=== PATIENT | male | born 1970 | race Caucasian/White ===

== ENCOUNTER 2017-10-17 19:50 | Observation (INO) | payer OTHER ==
[~2017-10-17] VITALS: Ht 180.3 cm; Wt 116.5 kg
[2017-10-17 21:00] LABS: HEMATOCRIT 45.5 % (38.0-50.0); MCH 32.1 PG (29.0-34.0); MCHC 36.5 G/DL (30.0-36.0); MEAN PLAT.VOLUME 10.5 uM^3 (9.0-12.4); PLATELET COUNT 199 K/uL (156-360); RBC DIS.WIDTH-CV 12.1 % (11.8-14.6); RED BLOOD COUNT 5.17 M/uL (4.00-5.50); WHITE BLOOD COUNT 8.5 K/uL (4.1-10.2)
[2017-10-17 21:11] LABS: CHLORIDE 105 mEq/L (99-109); POTASSIUM 3.2 mEq/L (3.7-5.4); SODIUM 138 mEq/L (136-147)
[2017-10-17 21:12] LABS: GLUCOSE 100 mg/dL (70-99)
[2017-10-17 21:14] LABS: ANION GAP 10 MEQ/L (2-14)
[2017-10-17 21:17] LABS: GFR ESTIMATE (CALCULATED) > 59 mL/min/ (58.99-99999); UREA NITROGEN (BUN) 16 mg/dL (9-23)
[2017-10-17] MEDS ORDERED: HYDROCHLOROTHIA25 MG PO (22:02)
[2017-10-17] MEDS ORDERED: ATORVASTATIN CA80 MG PO (22:02)
[2017-10-17] MEDS ORDERED: ASPIR-TRIN325 M1 PO (22:03)
[2017-10-18 00:22] VITALS: BP 141/80
[2017-10-18 03:16] VITALS: BP 114/6
[2017-10-18 06:34] LABS: ANION GAP 8 MEQ/L (2-14); CHLORIDE 106 MEQ/L (99-109); GFR ESTIMATE (CALCULATED) > 59 mL/min/ (58.99-99999); GLUCOSE 92 mg/dL (70-99); HDL CHOLESTEROL 22 MG/DL (Desirable>=40); LDL CHOLESTEROL 59 mg/dL (Desirable<100); NON-HDL CHOLESTEROL 89 mg/dL (Desirable<160); POTASSIUM 3.5 MEQ/L (3.7-5.4); SAMPLE HEMOLYSIS CHECK 0; SAMPLE ICTERIC CHECK 0; SAMPLE LIPEMIA CHECK 0; SODIUM 140 MEQ/L (136-147); TOTAL CHOLESTEROL 111 mg/dL (Desirable<200); TRIGLYCERIDES 151 MG/DL (Normal: <150); UREA NITROGEN (BUN) 14 mg/dL (9-23)
[2017-10-18 06:53] LABS: Estimated Average Glucose 100 mg/dL (70-123); HEMOGLOBIN A1c (GLYCOHEMOGLOB) 5.1 % HGB (Below 5.7)
[2017-10-18 08:56] VITALS: BP 131/78
[2017-10-18 12:05] VITALS: BP 129/73
== END 2017-10-18 15:23 | disposition home or self-care (01) ==
LOC: EME 19:50 → EDOF 22:51 → 5WEST 22:51 → ENRESERV 22:52 → 5WEST 10-18 00:10
PROVIDERS: Physician Assistant
DX: G45.9 Transient cerebral ischemic attack, unspecified (principal); I10 Essential (primary) hypertension; E87.6 Hypokalemia; Z79.82 Long term (current) use of aspirin; Z86.73 Personal history of transient ischemic attack (TIA), and cerebral infarction without residual deficits; Z85.828 Personal history of other malignant neoplasm of skin; Z87.891 Personal history of nicotine dependence; Z82.49 Family history of ischemic heart disease and other diseases of the circulatory system; Z82.0 Family history of epilepsy and other diseases of the nervous system; Z80.51 Family history of malignant neoplasm of kidney
CPT/HCPCS: 70450; 70551; 71020; 80048; 80061; 83036; 85027; 93005; 93880; 99281; 99285; G0378; J1650

== ENCOUNTER 2018-02-16 20:43 | Day surgery (SDC) | payer OTHER ==
[~2018-02-16] VITALS: Ht 180.3 cm; Wt 118.3 kg
[~2018-02-16 20:43] MED LIST: ASPIR-TRIN325 M1 PO; ATORVASTATIN CA80 MG PO; HYDROCHLOROTHIA25 MG PO
[2018-02-16] MEDS ORDERED: ZANTAC150 MG PO (23:12)
[2018-02-17 05:32] VITALS: BP 137/73
[2018-02-17 07:58] VITALS: BP 130/70
[2018-02-17] MEDS ORDERED: NEXIUM40 MG PO (10:17)
== END 2018-02-17 11:27 | disposition home or self-care (01) ==
LOC: EME 20:43 → SDC 02-17 02:49 → 2SOUTH 02-17 03:30 → 2EAST 02-17 03:30 → 2SOUTH 02-17 03:30 → ENRESERV 02-17 03:52 → 2EAST 02-17 06:13
PROVIDERS: Emergency Medicine
PROC: 0DC18ZZ Extirpation of Matter from Upper Esophagus, Via Natural or Artificial Opening Endoscopic (ICD-10-PCS; principal; 2018-02-17)
PROC: 0CJS8ZZ Inspection of Larynx, Via Natural or Artificial Opening Endoscopic (ICD-10-PCS; principal; 2018-02-17)
DX: T18.128A Food in esophagus causing other injury, initial encounter (principal); K22.2 Esophageal obstruction; K22.11 Ulcer of esophagus with bleeding; K21.9 Gastro-esophageal reflux disease without esophagitis; I10 Essential (primary) hypertension; E78.5 Hyperlipidemia, unspecified; Z87.891 Personal history of nicotine dependence; Z86.718 Personal history of other venous thrombosis and embolism; Z79.82 Long term (current) use of aspirin
CPT/HCPCS: 70360; 71046; 71250; 82948; 99281; 99285; C9113; G0378; J0330; J1100; J1650; J2405; J7030